=== PATIENT | male | born 1985 | race Caucasian/White ===

== ENCOUNTER 2018-10-10 15:59 | Emergency (ER) | payer BC, OTHER ==
--- NOTE | 2018-10-10 16:18 | EDPHY ---
H & P Time Seen by Provider: 10/10/18 16:00 HPI/ROS: HPI Lower back pain. 33-year-old male by ambulance. He is visiting friends. He is here from [place] with his . He reports that about 7 years ago he aggravated his lower back twisting at awkwardly or lifting an object awkwardly. He reports that he had x-rays. His bony alignment was good. His disc space he states was healthy. They did not feel that he needed an MRI at that time. He has had some intermittent exacerbations of this lower back pain which she describes as in the midline and sharp and aching. He reports that about 3 days ago he tweaked his lower back twisting his back awkwardly. He reports since then he has had some soreness in the mid lower lumbar area. He reports that today he was sitting down for a dinner and trying to sit style when he had sudden onset intense lower lumbar midline pain with spasming. [place] that he needed to take an ambulance to the hospital. EMS established an IV. He was given 100 mcg of IV fentanyl on the way to the hospital. He denies any loss of sensation or weakness in his lower extremities. No bowel or bladder incontinence. No history of significant trauma. No fever. No history of malignancy. He denies any radiation of the pain down his legs. ROS: Constitutional: No fever, no chills. No weakness. Eyes: No discharge. No changes in vision. ENT: No sore throat. No nasal congestion or rhinorrhea. Respiratory: No cough. No shortness of breath. Cardiac: No chest pain, no palpitations. Gastrointestinal: No abdominal pain, no vomiting, no diarrhea. Genitourinary: No hematuria. No dysuria or increased frequency with urination. Musculoskeletal: As above. No neck pain. No myalgias or arthralgias. Skin: No rashes. Neurological: No headache. No focal weakness or altered sensation. Past medical history: No significant past medical history. No prescription medications. Social history: Nonsmoker. Drinks alcohol socially. Here with his . As above. Physical Exam: General Appearance: Alert, no distress. This patient is responding to questions appropriately and in full sentences. This patient appears well- hydrated and well-nourished. Eyes: Pupils equal and round no pallor or injection. No lid edema, erythema or injection. Back exam: He does have paraspinal tenderness at L3 through L5. He does not have significant midline lumbar tenderness on palpation. No soft tissue changes. No erythema, warmth, edema or ecchymosis noted. No bony step-off or deformity noted on palpation of his midline thoracic lumbar and sacral spine. He has a negative same side and cross side straight leg raise test. He is neurologically intact in all myotomes in dermatomes of the bilateral lower extremities. Gastrointestinal: Abdomen is soft and nontender, no masses, bowel sounds normal. No focal tenderness at McBurney's point. No Vazquez sign. Neurological: Motor sensory function is grossly intact. Cranial nerves are normal. Gait is normal. Skin: Warm and dry, no rashes. Musculoskeletal: Neck is supple and nontender. Extremities are symmetrical. All joints range without pain or impingement. Psychiatric: No agitation. No depression. Database: EKG: Imaging: Procedures: Emergency department course: Triage vital signs reviewed. He is moderately hypertensive. Vital signs are otherwise normal. IV established by EMS. He was started on IV normal saline with 500 cc to be given over the next hour. He was placed on a rental car deliverer. For pain control he will initially be given 30 mg of IV Toradol and 1 mg of IV hydromorphone. He has no contraindications to NSAIDs. No history of renal dysfunction or peptic ulcer disease. 5:30 p.m., patient re-evaluated. We attempted to get this patient up to walk him. He is afraid to move because he thinks his back will start spasming again. He was given 10 mg of oral Flexeril. 6:45 p.m., the patient is able to get out of his gurney and ambulate under his own power at this time. He does feel comfortable going home with his who will be driving. Repeat neurologic Assessment is nonfocal. I will prescribe him high-dose ibuprofen to be taken over the next few days as well as Flexeril and he will be given a take-home pack of [place]. Follow-up and return to emergency department precautions reviewed with him and his . All of their questions were answered. The patient was discharged in good condition with his . Differential Diagnosis: The differential diagnosis on this patient includes but is not limited to lumbar sacral strain, bulging lumbar disc. Epidural compression syndrome, malignancy, epidural abscess, AAA unlikely. This represents a partial list of diagnoses considered. These considerations are based on history, physical exam , past history, reassessment and diagnostic testing. Smoking Status: Never smoked Constitutional: Initial Vital Signs Temperature (C) 36.6 C 10/10/18 16:01 Heart Rate 84 10/10/18 16:01 Respiratory Rate 18 10/10/18 16:01 Blood Pressure 150/107 H 10/10/18 16:01 O2 Sat (%) 95 10/10/18 16:01 O2 Delivery Mode Room Air Allergies/Adverse Reactions: No Known Allergies Allergy (Unverified 10/10/18 16:07) Home Medications: Medication Instructions Recorded 24 Hour Allergy 10/10/18 Cyclobenzaprine [Flexeril 10 MG 10 mg PO TID #9 tab 10/10/18 (*)] Medical Decision Making - Data Points Medications Given: Discontinued Medications Cyclobenzaprine HCl (Flexeril) 10 mg PO EDNOW ONE Stop: 10/10/18 17:29 Last Admin: 10/10/18 17:29 Dose: 10 mg Hydromorphone HCl (Dilaudid) 1 mg IVP EDNOW ONE Stop: 10/10/18 16:26 Last Admin: 10/10/18 16:33 Dose: 1 mg Sodium Chloride (Ns) 1,000 mls @ 0 mls/hr IV EDNOW ONE; Wide Open PRN Reason: Protocol Stop: 10/10/18 16:26 Last Admin: 10/10/18 16:31 Dose: 1,000 mls Ketorolac Tromethamine (Toradol) 30 mg IVP EDNOW ONE Stop: 10/10/18 16:26 Last Admin: 10/10/18 16:31 Dose: 30 mg Departure - Departure Disposition: Home, Routine, Self-Care Clinical Impression: Lower back pain Condition: Good Instructions: Low Back Strain (ED) Additional Instructions: Read and follow provided instructions. Follow-up with your primary care physician or spinal specialist when you return home to [place]. If you remain in [place] I have given you to options for follow-up both surgical and nonsurgical. Take medication as prescribed. You can start taking ibuprofen tomorrow. Ibuprofen dosin mg every 6 hours with meals for the next 3 days only. Take only as needed for pain. Narcotic pain medication: 1-2 every 4-6 hours as needed for pain. Do not drive while taking this medication. Return to the emergency department for worsening pain, bowel or bladder incontinence, loss of sensation or weakness in your extremities, fever or other serious concerns. Referrals: [facility] [Outside] - As per Instructions Yao Moffett MD [Medical Doctor] - As per Instructions Prescriptions: Cyclobenzaprine [Flexeril 10 MG (*)] 10 mg PO TID #9 tab
[2018-10-10] MEDS ORDERED: NS 1,000 ML IV ONE (16:25)
[2018-10-10] MEDS ORDERED: KETOROLAC 30 MG/1 ML SDV IVP ONE (16:25)
[2018-10-10] MEDS ORDERED: HYDROmorphONE/DILAUDID 2 MG/ML INJ IVP ONE (16:25)
[2018-10-10] MEDS ORDERED: KETOROLAC 30 MG/1 ML SDV ONE (16:26)
[2018-10-10] MEDS ORDERED: HYDROmorphONE/DILAUDID 1 MG/ML INJ ONE (16:26)
[2018-10-10] MEDS ORDERED: CYCLOBENZAPRINE 10 MG TAB ONE (17:27)
[2018-10-10] MEDS ORDERED: CYCLOBENZAPRINE 10 MG TAB PO ONE (17:28)
[2018-10-10] MEDS ORDERED: HYDROCOD/APAP 5/325 PREPACK#6 BTL TAKEHOME ONE (18:56)
[2018-10-10] MEDS ORDERED: CYCLOBENZAPRINE 10MG PREPACK#3 BTL TAKEHOME ONE (19:03)
[2018-10-10 19:16] VITALS: BP 142/96
== END 2018-10-10 19:22 | disposition home or self-care (01) ==
LOC: EDBD → EDUNIT#
DX: M54.5 Low back pain (principal); E86.9 Volume depletion, unspecified
CPT/HCPCS: 96374; J1170; J1885